=== PATIENT | female | born 1950 | race Two or more races ===

== ENCOUNTER 2023-07-29 20:41 | Emergency (ER) | payer OTHER ==
[~2023-07-29] VITALS: Ht 157.5 cm; Wt 55.8 kg
[2023-07-29] MEDS ORDERED: PAROXETINE CR25 MG PO (20:45)
[2023-07-29] MEDS ORDERED: TOPROL XL100 M1 PO (20:45)
[2023-07-29] MEDS ORDERED: ZETIA10 MG PO (20:46)
[2023-07-29] MEDS ORDERED: PLAVIX75 MG PO (20:46)
[2023-07-29] MEDS ORDERED: CHLORDIAZEPOX-1 EACH PO (20:46)
== END 2023-07-29 22:48 | disposition home or self-care (01) ==
LOC: ER 20:42
DX: U07.1 COVID-19 (principal)

== ENCOUNTER 2024-01-20 23:32 | Emergency (ER) | payer OTHER ==
[~2024-01-20] VITALS: Ht 157.5 cm; Wt 73.9 kg
[~2024-01-20 23:32] MED LIST: CHLORDIAZEPOX-1 EACH PO; PAROXETINE CR25 MG PO; PLAVIX75 MG PO; TOPROL XL100 M1 PO; ZETIA10 MG PO
[2024-01-20] MEDS ORDERED: ROSUVASTATIN CA40 MG PO (23:49)
[2024-01-20] MEDS ORDERED: LOSARTAN POTAS100 MG PO (23:49)
[2024-01-21 04:25] LABS: HEMATOCRIT 32.3 % (36.0-45.00); MEAN CELL VOLUME 85.5 fL (80.00-100.00); MEAN CORPUSCULAR HEMOGLOBIN 28.9 pg (27.00-32.0); MEAN CORPUSCULAR HGB CONC 33.8 g/dl (32.0-36.0); PLATELET COUNT 208 K/uL (150-450); RED BLOOD COUNT 3.77 M/uL (4.00-6.00); RED CELL DISTRIBUTION WIDTH 13.9 % (11.5-14.5)
[2024-01-21 04:30] LABS: HEMOGLOBIN 10.9 g/dL (12.0-15.00)
== END 2024-01-21 04:59 | disposition home or self-care (01) ==
LOC: ER 23:32
DX: U07.1 COVID-19 (principal)

== ENCOUNTER 2024-09-02 16:54 | Emergency (ER) | payer OTHER ==
[~2024-09-02] VITALS: Ht 157.5 cm; Wt 73.9 kg
[~2024-09-02 16:54] MED LIST changes: +LOSARTAN POTAS100 MG PO; +ROSUVASTATIN CA40 MG PO
[2024-09-02] MEDS ORDERED: HYOSCYAMINE SULFATE 0.125 MG TAB.SUBL SL ONE (18:00)
[2024-09-02] MEDS ORDERED: ONDANSETRON HCL 2 MG/ML VIAL IV ONE (18:00)
[2024-09-02] MEDS ORDERED: FAMOTIDINE/PF 20 MG/2 ML VIAL IV PUSH ONE (18:00)
[2024-09-02 18:29] LABS: HEMATOCRIT 36.3 % (36.0-45.00); HEMOGLOBIN 12.5 g/dL (12.0-15.00); MEAN CELL VOLUME 85.8 fL (80.00-100.00); MEAN CORPUSCULAR HEMOGLOBIN 29.5 pg (27.00-32.0); MEAN CORPUSCULAR HGB CONC 34.4 g/dl (32.0-36.0); PLATELET COUNT 278 K/uL (150-450); RED BLOOD COUNT 4.23 M/uL (4.00-6.00); RED CELL DISTRIBUTION WIDTH 14.7 % (11.5-14.5)
[2024-09-02 19:45] LABS: BILIRUBIN TOTAL 0.4 mg/dL (0.3-1.2); CREATININE SERUM 1.42 mg/dL (0.55-1.02); GFR 36.06; GLOBULINA 4.5 G/DL (2.4-3.5); POTASSIUM 3.51 mEq/L (3.5-5.1); TOTAL PROTEIN 8.5 gm/dL (6.4-8.2)
== END 2024-09-02 21:01 | disposition home or self-care (01) ==
LOC: ER 16:54
PROVIDERS: General Practice
DX: K29.70 Gastritis, unspecified, without bleeding (principal); R11.10 Vomiting, unspecified; I10 Essential (primary) hypertension
CPT/HCPCS: 36415; 76700; 96365; 99284; J2405; J3490

== ENCOUNTER 2025-04-19 10:27 | Emergency (ER) | payer OTHER ==
[~2025-04-19] VITALS: Ht 157.5 cm; Wt 64.0 kg
[2025-04-19 10:34] VITALS: BP 105/54; O2SAT 96
[2025-04-19] MEDS ORDERED: 0.9 % SODIUM CHLORIDE 1,000 ML IV SCH (11:00)
[2025-04-19] MEDS ORDERED: KETOROLAC TROMETHAMINE 15 MG VIAL IU ONE (11:00)
[2025-04-19] MEDS ORDERED: 0.9 % SODIUM CHLORIDE 1,000 ML IV ONE (11:00)
[2025-04-19] MEDS ORDERED: ONDANSETRON HCL 4 MG in 0.9 % SODIUM CHLORIDE 50 ML IV ONE (11:00)
[2025-04-19] MEDS ORDERED: FAMOTIDINE/PF 20 MG in 0.9 % SODIUM CHLORIDE 8 ML IV PUSH ONE (11:00)
[2025-04-19] MEDS ORDERED: KETOROLAC TROMETHAMINE 30 MG VIAL ONE (11:08)
[2025-04-19] MEDS ORDERED: ONDANSETRON HCL 2 MG/ML VIAL ONE (11:09)
[2025-04-19] MEDS ORDERED: FAMOTIDINE/PF 20 MG/2 ML VIAL ONE (11:09)
[2025-04-19 11:18] LABS: BASO % 0.4 % (0.1-1.2); EOS # 0.04 (0.04-0.54); EOS % 0.5 % (0.7-7.0); LYMPH # 1.53 (1.18-3.74); LYMPH % 19.8 % (19.3-53.1); MEAN PLATELET VOLUME 10.70 fl (9.4-12.4); MONO # 0.86 (0.24-0.82); MONO % 11.1 % (4.7-12.5); NEUT # 5.24 (1.56-6.13); NEUT % 67.8 % (34.0-71.1); RED CELL DISTRIBUTION WIDTH 12.5 % (11.6-14.4)
[2025-04-19 11:40] LABS: ALT/SGPT 27.0 U/L (12-78); AST/SGOT 37.0 U/L (15-37); BILIRUBIN TOTAL 0.5 mg/dL (0.3-1.2); BUN CREA RATIO 8.0 (7.0-25.0); CREATININE SERUM 1.69 mg/dL (0.55-1.02); GFR 29.5; GLOBULINA 5.0 G/DL (2.4-3.5); GLUCOSE FASTING 122.0 mg/dL (65-100); OSMOLALITY SERUM 257.0 MOSM/KG (275-295)
[2025-04-19 11:46] LABS: INR 1.07
[2025-04-19] MEDS ORDERED: POTASSIUM CHLORIDE 20MEQ/100ML H2O PB IV ONE ×2 (11:58→12:00)
[2025-04-19 13:50] LABS: URINE APPEARANCE Clear; URINE BILIRRUBIN Negative (NEGATIVE); URINE BLOOD Negative; URINE COLOR Yellow; URINE GLUCOSE Negative (NEGATIVE); URINE KETONE Negative (NEGATIVE); URINE LEUKOCYTE Small; URINE NITRATE Negative; URINE PROTEIN 30 (NEGATIVE); URINE UROBILINOGEN 0.2 E.U./dl
[2025-04-19 13:52] LABS: URINE BACTERIA 117.6 uL (0.0-1933); URINE CAST 2.19 uL (0.0-1.40); URINE EPITHELIAL CELLS 19.3 uL (0.0-38.8); URINE RBC 7.9 uL (0.0-20.8); URINE WBC 30.9 uL (0.0-23.2)
[2025-04-19 18:19] LABS: BUN CREA RATIO 9.0 (7.0-25.0); CREATININE SERUM 1.48 mg/dL (0.55-1.02); GFR 34.38; GLUCOSE FASTING 119.0 mg/dL (65-100); OSMOLALITY SERUM 268.0 MOSM/KG (275-295)
== END 2025-04-19 21:19 | disposition home or self-care (01) ==
LOC: ER 10:27
PROVIDERS: General Practice
DX: N17.9 Acute kidney failure, unspecified (principal); R10.13 Epigastric pain; R53.1 Weakness; R42 Dizziness and giddiness; K29.70 Gastritis, unspecified, without bleeding; R55 Syncope and collapse; R10.9 Unspecified abdominal pain
CPT/HCPCS: 36415; 70450; 74176; 93005; 96365; 96366; 99284; J1885; J2405; J3490; J7030 ×2